=== PATIENT | female | born 2005 | race Caucasian/White ===

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

== ENCOUNTER 2023-04-24 07:54 | Day surgery (SDC) | payer BC ==
[2023-04-24] MEDS ORDERED: Ringers Lactate 1,000 ML IV ONE (08:39)
[2023-04-24] MEDS ORDERED: propofoL 200 MG/20 ML VIAL IV ONE (10:34)
[2023-04-24] MEDS ORDERED: FENTANYL CITR 100 MCG/2 ML ONE (10:34)
[2023-04-24] MEDS ORDERED: MIDAZOLAM HCL 2 MG/2 ML INJ ONE (10:34)
[2023-04-24] MEDS ORDERED: LIDOCAINE 2% MPF 5 ML VIAL ONE (10:41)
[2023-04-24] MEDS ORDERED: ONDANSETRON 4 MG/2 ML VIAL ONE (10:41)
[2023-04-24] MEDS ORDERED: ROCURONIUM 50 MG/5 ML VIAL IV ONE (10:41)
[2023-04-24] MEDS ORDERED: NEOSTIGMINE 1 MG/ML -10 ML VIAL ONE (10:44)
[2023-04-24] MEDS ORDERED: GLYCOPYRROLATE 0.2 MG/ML SYR ONE (10:44)
[2023-04-24] MEDS: BUPIVACAINE 0.5% PF 10 ML VIAL ONE ×2 (11:30→11:36)
--- NOTE | 2023-04-24 11:45 | P.OP ---
Date of Service: 04/24/23 Preoperative diagnosis: Tonsil hypertrophy, recurrent acute tonsillitis, chronic tonsillitis, Tonsillolithiasis Postoperative diagnosis: Same Procedure: Tonsillectomy Surgeon: Clementina Alvarez MD Crossword Puzzle Maker: None Anesthesia: General via endotracheal tube IV fluids: 600 ml crystalloid Estimated blood loss: Minimal, less than 5 mL Specimen: Bilateral tonsils Findings: Chronically inflamed and cryptic tonsils Implants: None Indication: patient with persistent symptoms and findings in spite of good medical management. Details of operation: The patient was brought to the operating room and placed under general anesthesia via oral endotracheal tube. The head of bed was turned 90 degrees. A shoulder roll was placed and the neck was extended. A head drape was applied. The McIvor mouthgag was placed and suspended from the Sanchez stand. The oxygen concentration was confirmed with the anesthesiologist and was less than 40%. Weight-based dexamethasone was administered by the anesthesiologist. The soft palate was palpated and there was no submucous cleft. A red rubber catheter was placed in the nose and the tip withdrawn through the mouth and secured to the head drape for retraction of the soft palate. The tonsils were noted to be moderately enlarged and chronically inflamed with deep crypts and tonsil stones. The left tonsil was grasped with a straight Allis clamp. The Bovie electrocautery was used to incise the mucosa over the anterior pillar and identified the tonsillar capsule. The tonsil was dissected using cautery and blunt dissection until free from soft tissue attachments. A tonsil ball was placed to aid in hemostasis. The right tonsil was removed in a similar manner. The nasopharynx was examined using a laryngeal mirror and there is no evidence of adenoid hypertrophy or significant adenoid inflammation. Adenoidectomy was not indicated. The tonsillar fossa's were injected with 0.5% Marcaine with epinephrine; a total of 3 milliliters was used. The oropharynx was irrigated with cold saline. After suctioning, a Union sump orogastric tube was passed for decompression of the stomach. The red rubber catheter was removed and used to suction the oropharynx, nasopharynx, and nasal cavities. The McIvor mouthgag was removed. There was no evidence of injury to the teeth, lips, or tongue. The mandible was mobile. The patient was then awakened from anesthesia and extubated in the operating room, taken to the recovery room in stable condition. Disposition: The patient will be discharged home later today in the care of their family with written postoperative instructions and appropriate pain medications. They will follow-up in Dr. Alvarez's office in approximately 1 month. They are instructed to contact Dr. Alvarez's office for any bleeding or other concerns.
[2023-04-24 12:02] VITALS: O2SAT 100
[2023-04-24] MEDS ORDERED: HYDROCOD 2.5mg-ACETAMIN 108mg/5mL Soln ONE (12:52)
[2023-04-24 13:52] VITALS: BP 102/80
[2023-04-24 13:53] VITALS: TEMP 97
[2023-04-25 14:12] LABS: Urine Specific Gravity/Preg >1.030 (1.005-1.030)
== END 2023-04-24 13:20 | disposition home or self-care (01) ==
LOC: OR 07:54
PROVIDERS: ATTEND Otolaryngology
PROC: 0CTPXZZ Resection of Tonsils, External Approach (ICD-10-PCS; principal; 2023-04-24 09:15)
DX: J35.01 Chronic tonsillitis (principal); J35.8 Other chronic diseases of tonsils and adenoids
CPT/HCPCS: 81025; 88304; 42826; J2704; J2710; J2001; J2250; J3010; J2405; J7120